=== PATIENT | male | born 1985 | race Caucasian/White ===

== ENCOUNTER 2016-05-15 15:58 | Day surgery (SDC) | payer OTHER ==
[~2016-05-15] VITALS: Ht 193 cm; Wt 76.8 kg
[~2016-05-15 15:58] MED LIST: NAPROXEN500 MG PO; VALIUM2 MG PO
[2016-05-15 16:31] LABS: HEMATOCRIT 41.8 % (38.0-50.0); MCH 31.7 PG (29.0-34.0); MCHC 34.7 G/DL (30.0-36.0); MCV 91.5 FL (86-99); MEAN PLAT.VOLUME 11.3 uM^3 (9.0-12.4); PLATELET COUNT 144 K/uL (156-360); RBC DIS.WIDTH-CV 12.3 % (11.8-14.6); RBC DIS.WIDTH-SD 39.8 % (39-53); RED BLOOD COUNT 4.57 M/uL (4.00-5.50); WHITE BLOOD COUNT 19.4 K/uL (4.1-10.2)
[2016-05-15 16:40] LABS: CHLORIDE 105 mEq/L (99-109); POTASSIUM 3.7 mEq/L (3.7-5.4); SODIUM 141 mEq/L (136-147)
[2016-05-15 16:42] LABS: GLUCOSE 96 mg/dL (70-99)
[2016-05-15 16:43] LABS: ANION GAP 8 MEQ/L (2-14)
[2016-05-15 16:44] LABS: TOTAL BILIRUBIN 0.5 mg/dL (0.0-1.0)
[2016-05-15 16:46] LABS: ALKALINE PHOSPHATASE 61 IU/L (3-129); GFR ESTIMATE (CALCULATED) > 59 mL/min/
[2016-05-15 16:47] LABS: UREA NITROGEN (BUN) 10 mg/dL (9-23)
[2016-05-15 19:29] LABS: ADD MIUA? NO; BILIRUBIN NEGATIVE; BLOOD NEGATIVE; COLOR YELLOW ((YELLOW)); GLUCOSE (STRIP) NEGATIVE; KETONES 15; LEUKOCYTES NEGATIVE; NITRITE NEGATIVE; PH, URINE 6.5 (5-8); PROTEIN (STRIP) NEGATIVE; SPECIFIC GRAVITY 1.022 (1.000-1.030); UCUL ADDED? NO; UROBILINOGEN 0.2 MG/DL (0.2-1.0)
[2016-05-15 22:14] VITALS: BP 115/55
[2016-05-15 23:59] VITALS: BP 120/60
[2016-05-16 03:16] VITALS: BP 108/69
[2016-05-16 07:20] VITALS: BP 95/53
[2016-05-16] MEDS ORDERED: AUGMENTIN875 MG PO (10:48)
[2016-05-16] MEDS ORDERED: PERCOCET 5/31 TABLET PO (10:48)
[2016-05-16 12:00] VITALS: BP 123/59
== END 2016-05-16 13:05 | disposition home or self-care (01) ==
LOC: EME 15:58 → SDC 20:10 → 2SOUTH 21:00 → 2EAST 21:00 → 2SOUTH 21:00 → 2EAST 22:04
PROC: 0DTJ4ZZ Resection of Appendix, Percutaneous Endoscopic Approach (ICD-10-PCS; principal; 2016-05-15)
DX: K35.80 Unspecified acute appendicitis (principal); F17.200 Nicotine dependence, unspecified, uncomplicated
CPT/HCPCS: 74177; 80053; 81003; 85027; 88304; 99281; 99284; G0378; J1170; J2250; J2270; J2405; J2710; J3010; J7040; J7120